=== PATIENT | male | born 1990 | race Caucasian/White ===

== ENCOUNTER 2023-04-23 20:50 | Emergency (ER) | payer SELFPAY ==
[~2023-04-23] VITALS: Ht 185.4 cm; Wt 93.0 kg
[2023-04-23 20:57] VITALS: BP 103/36; PULSE 58; RESP 14; TEMP 97.9; O2SAT 99
[2023-04-23 21:05] VITALS: BP 103/36; PULSE 58; RESP 14; TEMP 97.9; O2SAT 99
--- NOTE | 2023-04-23 21:05 | NUR ---
Patient discharged with v/s stable. Written and verbal after care instructions given and explained. Patient verbalized understanding. Ambulatory with steady gait. All questions addressed prior to discharge. Advised to follow up with PMD.
== END 2023-04-23 21:05 | disposition home or self-care (01) ==
LOC: MED 20:50
DX: R55 Syncope and collapse (principal)
CPT/HCPCS: 99283